=== PATIENT | female | born 2000 | race Caucasian/White ===

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

== ENCOUNTER 2022-12-25 13:33 | Emergency (ER) | payer OTHER ==
[~2022-12-25] VITALS: Ht 165.1 cm; Wt 84.4 kg
[2022-12-25 13:38] VITALS: BP 132/82; PULSE 82; RESP 17; TEMP 97.4; O2SAT 98
[2022-12-25] MEDS ORDERED: IBUP-2213 PO (14:20)
[2022-12-25] MEDS ORDERED: PROM118S6 PO (14:20)
[2022-12-25] MEDS ORDERED: BENZ-300 PO (14:20)
[2022-12-25 14:59] VITALS: BP 132/82; PULSE 82; RESP 17; TEMP 97.4; O2SAT 98
[2022-12-25 15:51] LABS: FLU A ANTIGEN negative (NEGATIVE)
[2022-12-25 15:52] LABS: FLU B ANTIGEN negative (NEGATIVE)
[2022-12-25] MEDS ORDERED: NIRM1TAB PO (20:06)
== END 2022-12-25 14:59 | disposition home or self-care (01) ==
LOC: MED 13:33
DX: J06.9 Acute upper respiratory infection, unspecified (principal); Z20.822 Contact with and (suspected) exposure to COVID-19; Z79.899 Other long term (current) drug therapy
CPT/HCPCS: 99283

== ENCOUNTER 2023-02-12 08:26 | Emergency (ER) | payer OTHER ==
[~2023-02-12] VITALS: Ht 165.1 cm; Wt 117.9 kg
[~2023-02-12 08:26] MED LIST changes: +BENZ-300 PO; +IBUP-2213 PO; +NIRM1TAB PO; +PROM118S6 PO
[2023-02-12 08:50] VITALS: BP 137/82; PULSE 95; RESP 14; TEMP 99.1; O2SAT 98
[2023-02-12] MEDS ORDERED: IBUP-2213 PO (10:18)
== END 2023-02-12 10:37 | disposition home or self-care (01) ==
LOC: MED 08:26
DX: S93.402A Sprain of unspecified ligament of left ankle, initial encounter (principal); Z79.899 Other long term (current) drug therapy; X58.XXXA Exposure to other specified factors, initial encounter; Y93.89 Activity, other specified; Y92.89 Other specified places as the place of occurrence of the external cause; Y99.8 Other external cause status
CPT/HCPCS: 29515; 73610; 99283

== ENCOUNTER 2023-11-30 15:30 | Emergency (ER) | payer OTHER ==
[~2023-11-30] VITALS: Ht 165.1 cm; Wt 126.8 kg
[2023-11-30 15:36] VITALS: BP 126/71; PULSE 87; RESP 18; TEMP 97.7; O2SAT 100
[2023-11-30] MEDS: KETOROLAC 30 MG/ML VIAL IVP ONE (16:02)
[2023-11-30 16:17] LABS: BASOPHILS % (AUTO) 0.4 % (0.0-2.0); EOSINOPHILS # (AUTO) 0.2 K/uL (0-0.4); EOSINOPHILS % (AUTO) 1.9 % (0.0-4.0); HEMATOCRIT 38.3 % (36-48); HEMOGLOBIN 12.8 g/dL (12.0-16.0); LYMPHOCYTES # (AUTO) 2.6 K/uL (2.5-16.5); LYMPHOCYTES % (AUTO) 30.6 % (20.5-51.1); MEAN CORPUSCULAR HEMOGLOBIN 30 pg (27-31); MEAN CORPUSCULAR HGB CONC 33 g/dL (33-37); MEAN CORPUSCULAR VOLUME 89.3 fL (80-94); MONOCYTES # (AUTO) 0.8 K/uL (0.8-1.0); MONOCYTES % (AUTO) 9.4 % (1.7-9.3); NEUTROPHILS # (AUTO) 4.9 K/uL (1.8-7.7); NEUTROPHILS % (AUTO) 57.7 % (42.2-75.2); PLATELET COUNT (AUTO) 208 K/uL (140-450); RED BLOOD CELL COUNT(AUTO) 4.29 MIL/uL (4.20-5.40); WHITE BLOOD COUNT (AUTO) 8.5 K/uL (4.8-10.8)
[2023-11-30 16:30] LABS: ANION GAP 11.3 (8-16); CALCIUM 8.8 mg/dL (8.5-10.1); CARBON DIOXIDE 27.9 mmol/L (21-32); CREATININE 0.8 mg/dL (0.6-1.3); POTASSIUM 4.2 mmol/L (3.5-5.1)
[2023-11-30 16:36] LABS: ALBUMIN 3.4 g/dL (3.4-5.0); BILIRUBIN,DIRECT 0.1 mg/dL (0.0-0.3); TOTAL BILIRUBIN 0.4 mg/dL (0.0-1.0); TOTAL PROTEIN, SERUM 7.2 g/dL (6.4-8.2)
[2023-11-30 16:48] LABS: APPEARANCE,URINE SLIGHTLY HAZY (CLEAR); BILIRUBIN,URINE NEGATIVE (NEGATIVE); BLOOD, URINE NEGATIVE (NEGATIVE); COLOR,URINE YELLOW (YELLOW); LEUKOCYTE ESTERASE ,URINE NEGATIVE (NEGATIVE); NITRITE, URINE POSITIVE (NEGATIVE); PH,URINE 7.5 (5.0-9.0); PROTEIN,URINE NEGATIVE (NEGATIVE); UGLUCOSE NEGATIVE (NEGATIVE); UROBILINOGEN,URINE 0.2 EU/dL (0.2 - 1)
[2023-11-30 16:50] LABS: BACTERIA,URINE 1+ /HPF (None Seen); MUCUS,URINE None Seen /LPF (None Seen); RBC,URINE 0-5 /HPF (0-5); SQUAMOUS EPITHELIAL CELL,UR 0-3 (FEW) /LPF (0-3 (FEW)); WBC,URINE 0-5 /HPF (0-5)
[2023-11-30] MEDS ORDERED: CEPH250C16 PO (17:20)
[2023-11-30] MEDS ORDERED: PHEN-1877 PO (17:20)
== END 2023-11-30 17:25 | disposition home or self-care (01) ==
LOC: MED 15:30
DX: N30.00 Acute cystitis without hematuria (principal); R19.7 Diarrhea, unspecified; Z79.1 Long term (current) use of non-steroidal anti-inflammatories (NSAID); Z79.2 Long term (current) use of antibiotics; Z79.899 Other long term (current) drug therapy
CPT/HCPCS: 36415; 74176; 80048; 80076; 81001; 81025; 83690; 85025; 96372; 99285; J1885

== ENCOUNTER 2023-12-31 19:44 | Emergency (ER) | payer OTHER ==
[~2023-12-31] VITALS: Ht 165.1 cm; Wt 127.0 kg
[~2023-12-31 19:44] MED LIST changes: +CEPH250C16 PO; +PHEN-1877 PO
[2023-12-31 20:11] VITALS: BP 133/76; PULSE 77; RESP 18; TEMP 97.5; O2SAT 100
[2023-12-31 21:14] VITALS: O2SAT 100
[2023-12-31] MEDS: diazePAM 5 MG TAB PO ONE (22:43)
[2023-12-31] MEDS: KETOROLAC 30 MG/ML VIAL IM ONE (22:44)
[2023-12-31 22:59] VITALS: O2SAT 100
[2023-12-31] MEDS ORDERED: CYCL-711 PO (23:46)
[2023-12-31] MEDS ORDERED: NAPR-337 PO (23:46)
[2023-12-31 23:55] VITALS: BP 129/78; PULSE 78; RESP 18; TEMP 97.7; O2SAT 100
== END 2023-12-31 23:55 | disposition home or self-care (01) ==
LOC: MED 19:44
DX: S16.1XXA Strain of muscle, fascia and tendon at neck level, initial encounter (principal); Z90.49 Acquired absence of other specified parts of digestive tract; Z79.899 Other long term (current) drug therapy; V89.2XXA Person injured in unspecified motor-vehicle accident, traffic, initial encounter; Y93.89 Activity, other specified; Y92.410 Unspecified street and highway as the place of occurrence of the external cause; Y99.8 Other external cause status
CPT/HCPCS: 70450; 72125; 81025; 96372; 99285; J1885

== ENCOUNTER 2024-02-28 19:49 | Emergency (ER) | payer OTHER ==
[~2024-02-28] VITALS: Ht 165.1 cm; Wt 134.7 kg
[~2024-02-28 19:49] MED LIST changes: +CYCL-711 PO; +NAPR-337 PO
[2024-02-28 20:07] VITALS: BP 100/71; PULSE 86; RESP 17; TEMP 98.1; O2SAT 100
[2024-02-28] MEDS: IBUPROFEN 600 MG TAB PO ONE (21:11)
[2024-02-28] MEDS ORDERED: BENZ-300 PO (21:42)
[2024-02-28] MEDS ORDERED: PROM118S6 PO (21:42)
[2024-02-28] MEDS ORDERED: IBUP-2213 PO (21:42)
[2024-02-28] MEDS ORDERED: FLONAS NS (21:42)
[2024-02-28 22:02] VITALS: BP 134/66; PULSE 81; RESP 17; TEMP 98.1; O2SAT 100
== END 2024-02-28 22:02 | disposition home or self-care (01) ==
LOC: MED 19:49
DX: J06.9 Acute upper respiratory infection, unspecified (principal); B97.89 Other viral agents as the cause of diseases classified elsewhere; R04.0 Epistaxis; Z79.899 Other long term (current) drug therapy
CPT/HCPCS: 87081; 99283